=== PATIENT | female | born 1980 | race African-American/Black ===

== ENCOUNTER 2022-12-31 03:49 | Emergency (ER) | payer OTHER ==
[~2022-12-31] VITALS: Ht 177.8 cm; Wt 70.8 kg
[2022-12-31 04:04] VITALS: BP_SYST 117; PULSE 78; RESP 16; TEMP 96.3; O2SAT 98
--- NOTE | 2022-12-31 04:16 | NUR ---
PT BROUGHT TO ROOM 3 CONNECTED TO VS MONITORING SAFETY RAILS UP
--- NOTE | 2022-12-31 04:25 | NUR ---
ER at bedside examining patient.
[2022-12-31 04:49] VITALS: BP_SYST 117; PULSE 78; RESP 16; TEMP 96.3; O2SAT 98
--- NOTE | 2022-12-31 04:52 | NUR ---
Patient given written and verbal discharge instructions and verbalizes understanding. ER MD discussed with patient the results and treatment provided. Patient in stable condition. ID arm band removed. Patient educated on [employer] management and to follow up with PMD. Pain Scale . Opportunity for questions provided and answered and advised to follow up with employee health in the a.m.
[2023-01-01 13:06] LABS: HEPATITIS B SURFACE AG Negative (Negative); HEPATITIS C VIRUS AB Non Reactive (Non Reactive)
== END 2022-12-31 04:49 | disposition home or self-care (01) ==
LOC: SED 03:49
DX: S61.231A Puncture wound without foreign body of left index finger without damage to nail, initial encounter (principal); Z79.899 Other long term (current) drug therapy; W46.1XXA Contact with contaminated hypodermic needle, initial encounter; Y93.89 Activity, other specified; Y92.89 Other specified places as the place of occurrence of the external cause; Y99.8 Other external cause status
CPT/HCPCS: 36415; 81025; 86706; 86803; 87340; 99283